=== PATIENT | male | born 1975 | race Caucasian/White ===

== ENCOUNTER 2019-11-04 08:01 | Day surgery (SDC) | payer OTHER ==
[~2019-11-04 08:01] MED LIST: Bupivacaine 0.5% 10 ML SDV ONE; Clindamycin Phosphate in D5W 900 MG in Premix Bag 1 BAG IV SCH; Lactated Ringers 1,000 ML IV SCH
--- NOTE | 2019-11-04 08:34 | PCM.PREANE ---
Preanesthetic Assessment - Anesthesia/Transfusion/Family Hx Anesthesia History: Prior Anesthesia Without Reaction Transfusion History: No Prior Transfusion(s) - Review of Systems General: No Symptoms Pulmonary: No Symptoms Cardiovascular: No Symptoms Gastrointestinal: No Symptoms Neurological: No Symptoms Other: Reports: None - Physical Assessment NPO Status Date: 11/03/19 Height: 5 ft 11 in Weight: 108.409 kg ASA Class: 1 Mental Status: Alert & Oriented x3 Airway Class: Mallampati = 2 Dentition: Reports: Normal Dentition ROM/Head Extension: Full Lungs: Clear to Auscultation, Normal Respiratory Effort Cardiovascular: Regular Rate, Regular Rhythm - Allergies Allergies/Adverse Reactions: Allergies Allergy/AdvReac Type Severity Reaction Status Date / Time Penicillins Allergy Anaphylactic Verified 10/29/19 10:07 Shock - Blood Blood Available: No - Anesthesia Plan Pre-Op Medication Ordered: None - Acknowledgements Anesthesia Type Planned: General Anesthesia Pt an Appropriate Candidate for the Planned Anesthesia: Yes Alternatives and Risks of Anesthesia Discussed w Pt/Guardian: Yes Pt/Guardian Understands and Agrees with Anesthesia Plan: Yes PreAnesthesia Questionnaire HEENT History: Reports: Allergic Rhinitis Musculoskeletal History: Reports: Fracture Other Musculoskeletal History: hx of fx coccyx, fingers and toes Neurological History: Reports: Concussion, Head Trauma Endocrine/Metabolic History: Reports: Obesity/BMI 30+ - Past Surgical History Head Surgeries/Procedures: Reports: None HEENT Surgical History: Reports: Adenoidectomy, Tonsillectomy GI Surgical History: Reports: Cholecystectomy, Hernia, Inguinal, Other (See Below) Other GI Surgeries/Procedures: gastric sleeve july 2017 Musculoskeletal Surgical History: Reports: Carpal Tunnel, Shoulder Surgery Other Musculoskeletal Surgeries/Procedures:: right rotator cuff repair x 2; - SUBSTANCE USE Smoking Status *Q: Former Smoker Tobacco Use Within Last Twelve Months: Smokeless Tobacco Recreational Drug Use History: No - HOME MEDS Home Medications: Home Meds Zolpidem Tartrate [Ambien] 10 mg PO BEDTIME PRN 11/22/17 [History] Cetirizine [ZyrTEC] 10 mg PO QAM 10/29/19 [History] Hydrocodone/Acetaminophen [Hydrocodone-Acetamin 10-325 mg] 1 tab PO ASDIRECTED PRN 10/29/19 [History] - CURRENT (IN HOUSE) MEDS Current Meds: Current Medications Clindamycin Phosphate 900 mg/ (Premix) 50 mls @ 100 mls/hr IV ONCALL KIA Lactated Ringer's (Ringers, Lactated) 1,000 mls @ 100 mls/hr IV ASDIRECTED KIA Discontinued Medications Bupivacaine HCl (Sensorcaine-Mpf 0.5%) Confirm Administered Dose 10 ml .ROUTE .[employer] ONE Stop: 11/04/19 07:48
[2019-11-04] MEDS ORDERED: fentaNYL 100 MCG/2 ML SDV ONE (08:46)
[2019-11-04] MEDS ORDERED: Lidocaine 2% 5 ML SDV ONE (08:46)
[2019-11-04] MEDS ORDERED: Propofol 200 MG/20 ML SDV ONE (08:46)
[2019-11-04] MEDS ORDERED: Midazolam 1 MG/ML 2 ML SDV ONE (08:46)
[2019-11-04] MEDS ORDERED: Bupivacaine 0.5%/EPINEPHrine 1:200,000 10 ML SDV ONE (08:58)
[2019-11-04] MEDS ORDERED: Ketorolac 30 MG/ML SDV ONE (10:06)
[2019-11-04] MEDS ORDERED: Ondansetron 4 MG/2 ML SDV ONE (10:06)
[2019-11-04] MEDS ORDERED: Naloxone 0.4 MG/ML Syringe IVPUSH PRN (11:23)
[2019-11-04] MEDS ORDERED: Albuterol 0.083% 2.5 MG/3 ML Neb Soln NEB PRN (11:23)
[2019-11-04] MEDS ORDERED: fentaNYL 100 MCG/2 ML SDV IVPUSH PRN (11:23)
[2019-11-04] MEDS ORDERED: EPINEPHrine 1:10,000 1 MG/10 ML Syringe IVPUSH PRN (11:23)
[2019-11-04] MEDS ORDERED: Atropine 0.1 MG/ML 10 ML Syringe IVPUSH PRN ×2 (11:23)
[2019-11-04] MEDS ORDERED: 50% Dextrose in Water 50 ML Syringe IVPUSH PRN (11:23)
[2019-11-04] MEDS ORDERED: Dexamethasone 4 MG/ML 5 ML MDV ONE (11:34)
--- NOTE | 2019-11-04 11:46 | PCM.OPNOTE ---
- General Post-Op/Procedure Note Date of Surgery/Procedure: 11/04/19 Operative Procedure(s): right knee arthroscopy. plica resection/partial synovectomy. partial anterior lateral menisectomy Pre Op Diagnosis: knee pain Post-Op Diagnosis: medial and lateral plica. partial lateral meniscus tear, anterior Anesthesia Technique: General LMA Primary Surgeon: Christian Kent Principal Associate: Shruti Reese EBL in mLs: 5 Complications: None Condition: Good
--- NOTE | 2019-11-04 12:20 | PCM.POSTAN ---
POST ANESTHESIA ASSESSMENT - MENTAL STATUS Mental Status: Alert, Oriented - VITAL SIGNS Vital Signs: Last Vital Signs Temp 96.8 F L 11/04/19 11:50 Pulse 62 11/04/19 12:15 Resp 14 11/04/19 12:15 BP 110/66 11/04/19 12:15 Pulse Ox 99 11/04/19 12:15 - RESPIRATORY Respiratory Status: Respiratory Rate WNL, Airway Patent, O2 Saturation Stable - CARDIOVASCULAR CV Status: Pulse Rate WNL, Blood Pressure Stable - GASTROINTESTINAL GI Status: No Symptoms - POST OP HYDRATION Hydration Status: Adequate & Stable
[2019-11-04] MEDS ORDERED: Acetaminophen/oxyCODONE 325-5 MG Tab PO ONE (12:41)
--- NOTE | 2019-11-04 13:23 | PCM48HPAN ---
Post Anesthesia Note - EVALUATION WITHIN 48HRS OF ANESTHETIC Vital Signs in Normal Range: Yes Patient Participated in Evaluation: Yes Respiratory Function Stable: Yes Airway Patent: Yes Cardiovascular Function Stable: Yes Hydration Status Stable: Yes Pain Control Satisfactory: Yes Nausea and Vomiting Control Satisfactory: Yes Mental Status Recovered: Yes Vital Signs: Last Vital Signs Temp 96.8 F L 11/04/19 11:50 Pulse 57 L 11/04/19 12:22 Resp 16 11/04/19 12:22 BP 126/74 11/04/19 12:22 Pulse Ox 99 11/04/19 12:22
--- NOTE | 2019-11-04 16:19 | OR ---
SURGEON: Christian Kent DATE OF PROCEDURE: 11/04/2019 PREOPERATIVE DIAGNOSIS: Right knee pain. POSTOPERATIVE DIAGNOSES: Right knee plica and right knee anterior lateral meniscus tear. OPERATIVE PROCEDURES: Right knee arthroscopy, partial synovectomy with plica resection, and partial anterior lateral meniscectomy. PRIMARY SURGEON: Christian Kent DO FOUNDRY TECHNICIAN: LINWOOD Price ROLE OF FOUNDRY TECHNICIAN: Nurse practitioner, LINWOOD Price, played an essential role in assisting in this case, helping to position the patient, retract structures as needed, as well as suturing and cutting sutures as indicated. Her presence improved patient's safety and decreased operative time. FLUIDS: Lactated Ringer's solution. ESTIMATED BLOOD LOSS: 5 mL. COMPLICATIONS: None. SPECIMEN: None. DISCHARGE DISPOSITION: Stable to PACU. HISTORY AND INDICATIONS FOR THE PROCEDURE: The patient was seen preoperatively by myself in the clinic. He had failed nonoperative treatment. Risks and goals of the procedure were explained to the patient. Informed consent was obtained. DETAILS OF PROCEDURE: The patient was seen preoperatively by myself and the Anesthesia staff in the preoperative holding area where the operative site was marked. He was brought to the operative suite by Anesthesia staff where general anesthesia was administered. The left lower extremity was placed in stirrup. The right lower extremity had a well placed and well-padded tourniquet. A bump was placed under the right hip at about 15 degrees of flexion as to avoid any femoral nerve palsy. The right lower extremity was then prepped and draped in a sterile manner. Time-out was called identifying the correct patient, the correct procedure, the correct site, and that antibiotics had been given within appropriate period of time. A lateral portal was first made with a 12 blade. I then used the trocar to enter the joint and then used a camera. We were in the, as we expected, the patellofemoral area and the suprapatellar fat pouch and this showed medial and lateral plica without any patellofemoral chondromalacia. No loose bodies were seen in the gutters. There was an anterior lateral partial meniscus tear. I then used the blade to create a medial portal and used the trocar to enter it and then entered with a shaver. I performed a partial infrapatellar fat pad resection and was able to visualize the medial meniscus, which did not show any tears. 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 I then performed a partial anterior lateral meniscectomy using the shaver and the ablation unit to stabilize the free edges. Anterior and posterior cruciate ligaments were in good repair. I then went into the suprapatellar pouch and then medial and lateral, we ablated the plica. After this had been accomplished, we removed our instruments and then my assist injected local anesthetic followed by horizontal mattress sutures of 3-0 nylon followed by Betadine-soaked Adaptic, sterile dressing, and an Storm wrap. The patient was then allowed to awaken from general anesthesia and taken to the PACU in stable condition. [id number] / MODL /[id number]
== END 2019-11-04 13:35 | disposition home or self-care (01) ==
LOC: MW.SDS 08:01
PROVIDERS: ATTEND Orthopaedic Surgery
DX: S83.281A Other tear of lateral meniscus, current injury, right knee, initial encounter (principal); M67.51 Plica syndrome, right knee; M94.261 Chondromalacia, right knee; G47.00 Insomnia, unspecified; R94.4 Abnormal results of kidney function studies; E66.9 Obesity, unspecified; Z88.0 Allergy status to penicillin; Z87.891 Personal history of nicotine dependence; Z79.899 Other long term (current) drug therapy; Z68.33 Body mass index [BMI] 33.0-33.9, adult; X58.XXXA Exposure to other specified factors, initial encounter
CPT/HCPCS: 29881; A9270; J1100; J1885; J2001; J2250; J2405; J2704; J3010; J3490; J7120